=== PATIENT | male | born 1955 | race Caucasian/White ===

== ENCOUNTER 2017-05-17 07:20 | Emergency (ER) | payer SELFPAY ==
[2017-05-17] MEDS ORDERED: Sodium Chloride 0.9% 1,000 ML PRIMARY IV ONE (07:43)
[2017-05-17] MEDS ORDERED: DIPH,PERTUSS,TET(ADACEL) VAC/PF 0.5 ML (Tdap) IM ONE (07:43)
[2017-05-17] MEDS ORDERED: ceFAZolin Inj 1gm (Premix) 1 GM in Dextrose 1 BAG IV ONE (07:44)
[2017-05-17 07:58] VITALS: RESP 18; TEMP 98
[2017-05-17 08:06] LABS: BASOPHILS # (AUTO) 0.23 10*3/UL; EOSINOPHILS # (AUTO) 0.19 10*3/UL; EOSINOPHILS % (AUTO) 1.6 % (0-8); HEMATOCRIT 43.7 % (42.0-52.0); HEMOGLOBIN 15.3 g/dL (14.0-18.0); MEAN CORPUSCULAR VOLUME 94.4 FL (80-90); MEAN PLATELET VOLUME 9.3 FL (7.4-12.2); MONOCYTES # (AUTO) 0.79 10*3/UL (0.3-0.8); MONOCYTES % (AUTO) 6.8 % (5-15); NEUTROPHILS # (AUTO) 7.95 10*3/UL; NEUTROPHILS % (AUTO) 68.8 % (50-80); RED BLOOD COUNT 4.63 10^6/uL (4.70-6.10)
[2017-05-17 08:12] LABS: PLATELET MORPHOLOGY COMMENT NORMAL MORPHOLOGY (NORM); RBC MORPHOLOGY COMMENT NORMAL MORPHOLOGY (NORM); WBC MORPHOLOGY COMMENT NORMAL MORPHOLOGY (NORM)
[2017-05-17 08:17] LABS: BLOOD UREA NITROGEN 14 mg/dL (7-22); BUN/CREATININE RATIO 23.33 (6-20); CALCIUM 9.1 mg/dL (8.7-10.7); EST GLOMERULAR FILTRATION > 60 (>60 ml/min/1.73m(2)); SERUM ALBUMIN 4.6 g/dL (3.5-4.8)
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
== END 2017-05-17 09:45 | disposition home or self-care (01) ==
LOC: ER 07:20
DX: S01.311A Laceration without foreign body of right ear, initial encounter (principal); S06.0X1A Concussion with loss of consciousness of 30 minutes or less, initial encounter; S01.21XA Laceration without foreign body of nose, initial encounter; M54.2 Cervicalgia; S01.81XA Laceration without foreign body of other part of head, initial encounter; V86.59XA Driver of other special all-terrain or other off-road motor vehicle injured in nontraffic accident, initial encounter; Y92.821 Forest as the place of occurrence of the external cause
CPT/HCPCS: 70450; 70486; 72125; 80053; 80320; 85025; 90471; 96365; 99285; J0690; J7030

== ENCOUNTER 2019-08-09 14:00 | Inpatient (IN) ==
[2019-08-09] MEDS ORDERED: PANTOPRAZOLE IV 40 MG VIAL IVP ONE (14:18)
[2019-08-09] MEDS ORDERED: Sodium Chloride 0.9% 1,000 ML PRIMARY IV ONE (14:18)
[2019-08-09 14:37] LABS: Hematocrit [HCT] 38.2 % (42.0-52.0); Hemoglobin [HGB] 12.9 g/dL (14.0-18.0); MEAN CORPUSCULAR HGB CONC 33.8 g/dL (33-37); MEAN CORPUSCULAR VOLUME 92.7 FL (80-90); MEAN PLATELET VOLUME 9.5 FL (7.4-12.2); RED BLOOD COUNT 4.12 10^6/uL (4.70-6.10)
[2019-08-09 14:46] LABS: BLOOD UREA NITROGEN 16 mg/dL (7-22); BUN/CREATININE RATIO 17.77 (6-20)
[2019-08-09 14:52] LABS: BAND NEUTROPHILS % 1 % (0-10); BASOPHILS % (MANUAL) 2 % (0-1); EOSINOPHILS % (MANUAL) 2 % (0-8); MONOCYTES % (MANUAL) 4 % (0-12); NEUTROPHILS % (MANUAL) 51 % (50-80); PLATELET MORPHOLOGY COMMENT NORMAL MORPHOLOGY (NORM); RBC MORPHOLOGY COMMENT NORMAL MORPHOLOGY (NORM); WBC MORPHOLOGY COMMENT SEE COMMENTS (NORM)
[2019-08-09 15:24] LABS: BILIRUBIN,URINE NEGATIVE (NEG); CLARITY,URINE CLEAR (CLEAR); COLOR,URINE YELLOW (Y); GLUCOSE, URINE (UA) NEGATIVE (NEG); OCCULT BLOOD,URINE NEGATIVE (NEG); PROTEIN,URINE NEGATIVE (NEG)
[2019-08-09 15:27] LABS: URINE SAMPLE TYPE CLEAN CATCH URINE
--- NOTE | 2019-08-09 15:57 | DI ---
CT Abdomen/Pelvis W Contrast,08/09/2019 2:50 PM: Clinical History: Abdominal pain Previous Exam: July 30, 2019 Findings: Multiple helically acquired CT images are obtained through the abdomen and pelvis following intraveno us administration of 75 cc of Omnipaque 300, and demonstrates clear lung bases. The liver is stable when compared with the prior exam. The gallbladder is decompressed. The urinary bladder is unremarkable. The anterior abdominal wall and subcutaneous fat is normal. The ascites seen on the prior exam has resolved. There are some fluid filled loops of small bowel without a transition point. There is debris within t he stomach. The appendix is enlarged and inflamed measuring 13 mm in diameter. There is periappendiceal fat stran ding is well. The liver, gallbladder, spleen, pancreas, adrenals and kidneys are unremarkable. The free fluid seen on the prior exam has resolved. Impression: Acute appendicitis.
[2019-08-09] MEDS ORDERED: Ertapenem Inj 1 GM in Sodium Chloride 0.9% 100 ML IV ONE (16:19)
--- NOTE | 2019-08-09 18:36 | CONSULT ---
Consult Note - Consult Consult Date: 08/09/19 Reason for Consult: PreOp Consulation : General Surgery Requesting Physician: Dr. Llamas Primary Care Provider: NONE NONE - History of Present Illness History of Present Illness: The patient is a 64-year-old male I'm asked to see for an abnormal appendix. Patient was in the emergency room on 07/30/2019. He had abdominal pain with nausea and vomiting. It had a recent urology visit for swelling of his right testicle. Biofire stool studies were ordered as well as a CT scan. The patient was hydrated and felt better. He left before the results of the CT scan and stool studies were available. His stool studies were negative. CT scan was read as a partial some bowel obstructive process. The report says the appendix was not seen but there is no inflammatory process in the right lower quadrant. The patient did not keep his follow-up appointment with Dr. Small. He he presents to the emergency room again today with abdominal pain, abdominal cramping, nausea, diarrhea, and vomiting. He is worse after he eats. He is having some bowel movements but feels backed up. A repeat CT scan was done. He has an enlarged appendix with periappendiceal inflammatory change. The appendix measures 13 mm. No obvious abscess. It is felt he had an abnormal appendix on his prior CT. His white count is normal at 7000 and was 14,000 on the . He does not appear to be in any acute distress. I'm asked to see him for evaluation. Review of Systems - Gastrointestinal Gastrointestinal / Abdominal: REPORTS: Nausea, Vomiting, Diarrhea, Abdominal Pain, Poor Appetite, Bloating, See HPI Past Medical History Medical History: Chronic smoker, denies significant medical problems. Surgical History: Tonsillectomy. Ear surgery. Tobacco Use: Current Every Day Smoker (Pack-a-day) In the Past 12 Months, Have Used or Abuse Any of the Following Substance: None Alcohol Use: Sober (Quit 5 years ago) Medication / Allergies Home Medications: Home Medications Medication Instructions Recorded Confirmed NK 08/09/19 08/09/19 Allergies/Adverse Reactions: Allergies Allergy/AdvReac Type Severity Reaction Status Date / Time venom-honey bee Allergy Anaphylaxis Verified 08/09/19 14:01 Results - Labs CBC and BMP: 08/09/19 14:20 08/09/19 14:20 - Imaging Status: Image Reviewed by Me, Report Reviewed by Me (And discussed with the radiologist.) Exam - Vitals Vital Signs: Vital Signs Temperature 97.1 F Temperature Source Temporal Artery Scan Pulse Rate [Pulse Oximeter] 60 Respiratory Rate 18 Blood Pressure [Left Arm] 128/79 Pulse Ox 94 Oxygen Flow Rate 0 Oxygen Delivery Method Room Air Height 5 ft 10 in Weight 127 lb - General General Appearance: No Acute Distress, Cooperative, Disheveled, Thin - Respiratory Respiratory Exam: POSITIVE: Clear to Auscultation - Bilaterally, Breathing Non Labored - Cardiovascular Cardiovascular Exam: POSITIVE: RRR, No Murmur - GI/Abdominal GI/Abdominal Exam: POSITIVE: Normal Bowel Sounds, Soft, Guarding Additional GI/Abdominal Exam Details: Right lower quadrant tenderness with guarding. No peritoneal signs. Fullness in the right lower quadrant. - Rectal Rectal Exam: POSITIVE: Deferred - Neurological Neurological Exam: POSITIVE: Alert, Oriented x 3 - Psychiatric Psychiatric Exam: POSITIVE: Normal Affect, Normal Mood Assessment and Plan - Patient Problems (1) Acute appendicitis Current Visit: Yes Status: Acute Priority: High Comment: Very unusual case. The appendix was enlarged and fluid-filled 11 days ago. It does not appear to have ruptured or there to be an abscess. Most likely acute appendicitis but have to consider other etiologies such as tumor, mucocele, possibly inflammatory bowel disease. At any rate we need to proceed with appendectomy. The procedure has been discussed with the patient in complete yet simple terms including benefits, risks, and alternatives. All questions h ave been answered. Informed consent has been obtained. He agrees to proceed. Code(s): K35.80 - Unspecified acute appendicitis Qualifiers: Acute appendicitis type: with localized peritonitis
[2019-08-09] MEDS ORDERED: Nasal Sanitizer POPSWAB ampule 3 AMP (Nozin) PREOP DOSE ENOS SCH (18:38)
[2019-08-09] MEDS ORDERED: Lactated Ringers 1,000 ML PRIMARY IV SCH (18:38)
[2019-08-09] MEDS ORDERED: Lactated Ringers 1,000 ML PRIMARY IV ONE ×2 (18:40→18:46)
[2019-08-09] MEDS ORDERED: LIDOCAINE MPF 2% - 5 ML (20 MG/1 ML) ONE (18:45)
[2019-08-09] MEDS ORDERED: PROPOFOL 10 MG/1 ML (200 MG/20 ML) VIAL IV ONE (18:45)
[2019-08-09] MEDS ORDERED: fentaNYL Inj 250 MCG/5 ML VIAL ONE (18:46)
[2019-08-09] MEDS ORDERED: MIDAZOLAM 5 MG/1 ML ONE (18:46)
[2019-08-09] MEDS ORDERED: ROCURONIUM 10 MG/1 ML - 5 ML VIAL IVP ONE (18:46)
[2019-08-09] MEDS ORDERED: LIDOCAINE W/ SODIUM BICARB 0.5 ML SYR SUBD PRN (18:57)
[2019-08-09] MEDS ORDERED: ONDANSETRON 4 MG/2 ML VIAL IVP PRN (18:57)
[2019-08-09] MEDS ORDERED: BUPIVACAINE 0.25% W/ EPI - 10 ML VIAL ONE (18:59)
[2019-08-09] MEDS ORDERED: KETOROLAC 30 MG/1 ML VIAL ONE (19:39)
[2019-08-09] MEDS ORDERED: SUGAMMADEX SODIUM 200 MG/2 ML VIAL IV ONE (19:39)
[2019-08-09] MEDS ORDERED: KETAMINE 100 MG/1 ML - 5 ML ONE (19:54)
[2019-08-09] MEDS ORDERED: Acetaminophen 1000mg Inj 1,000 MG/100 ML VIAL IV ONE (20:13)
[2019-08-09] MEDS ORDERED: Sodium Chloride 0.9% vial 0 ML ONE (20:35)
[2019-08-09] MEDS ORDERED: BUPivacaine Liposome/PF (Exparel) Inj 20ml vial INFIL ONE (20:36)
[2019-08-09] MEDS ORDERED: BUPivacaine Inj 0.25% PF - 10ml vial ONE (20:41)
--- NOTE | 2019-08-09 21:09 | CRNA.PROGR ---
Anesthesia Recovery Phase I - Post Anesthesia Evaluation Patient's Condition on Arrival in Phase I: Stable Pain Level: 0
--- NOTE | 2019-08-09 21:10 | CRNA.PROGR ---
Anesthesia Time - Procedure/Recovery Time Start Date: 08/09/19 End Date: 08/09/19 Anesthesia : Time In: 19:07 Anesthesia : Time Out: 21:09 Anesthesia : Total Time: 122 - Total Anesthesia Time Total Anesthesia Time (minutes): 122 - Other Weight: 57.606 kg Height: 5 ft 10 in Body Mass Index (BMI): 18.2 Physical Status: P2 Anesthesia Type: General Anesthesia : ET
--- NOTE | 2019-08-09 21:19 | GEN.OPNOTE ---
Operative Note Surgery Date: 08/09/19 Preoperative Diagnosis: Abnormal appendix. Possible acute appendicitis. Postoperative Diagnosis: Abnormal appendix. Dense adhesions. Mesenteric adenopathy. Etiology unclear. Procedure: Right hemicolectomy with ileotransverse colostomy Surgeon: Abhi Driscoll MD Anesthesia Provider: Joshua Carbajal CRNA Anesthesia Type: General Estimated Blood Loss (mL): 50 Fluids: 1600 mL of crystalloid. 1 g of IV Invanz at 5 PM. 30 mg of IV Toradol at 8:30 PM. 1 g of IV Tylenol at 8:15 PM. Pathology: Specimen to pathology. Indications: Right lower quadrant abdominal pain. Partial bowel obstructive symptoms. Abnormal CT of the appendix. Findings: Dilated and edematous terminal ileum. Appendix densely adhered to the terminal ileum and cecum. Adenopathy. The mass was stuck to the lateral sidewall. Complications: None. Operative Summary: The patient was taken to the operating suite and placed on the operating table in a supine position. Following induction of general anesthetic the abdomen was prepped and draped in a sterile fashion. A surgical timeout was performed. I made a usual appendectomy incision. The patient is very thin. The abdominal wall was transected in a muscle-splitting fashion. An Chaz retractor was placed. It soon became obvious that he would need a bigger incision. It was extended laterally and medially into the rectus muscle. A larger Chaz retractor was placed. The adhesion from the mass to the lateral sidewall was taken down by incising the peritoneum. With careful dissection I was able to elevate the appendix the terminal ileum and the right colon through the incision. The right colonic attachments were taken down with electrocautery. The terminal ileum was transected with a linear stapler. The mesocolon was taken down by clamping dividing and ligating it. I removed all gross adenopathy. The dissection was carried up to the right colon wall. The right colon was transected with a linear stapler. The specimen was removed from the operative field. Hemostasis was assured. Appropriate irrigation and suctioning were performed. The mesocolon was closed with 2-0 Vicryl. The bowel was placed in a [id number] fashion. The anastomosis was performed with an intraluminal stapler and the defect from the stapler was closed transversely with a TA 60 stapler. This created a [id number] yet functional end-to-end in ileocolostomy. I oversewed the TA 60 staple line. A stitch was placed in the crotch of the anastomosis. The anastomosis was widely patent. The anastomosis was returned to the right lower quadrant and covered with omentum. Final irrigation was performed. Final check for hemostasis was done. The abdominal wall was closed in layers with 0 Vicryl. The wound was irrigated as we closed in layers. The subcutaneous tissue was infiltrated circumferentially with exparel. Ivana's fascia was reapproximated with 2-0 Vicryl. The skin was closed with surgical alfredo followed by sterile dressing. The patient tolerated all aspects of the procedure well without complication. He was taken to recovery room in stable condition. All counts were correct. Patient Problems - Patient Problem List (1) Acute appendicitis Current Visit: Yes Status: Acute Priority: High Code(s): K35.80 - Unspecified acute appendicitis Qualifiers: Acute appendicitis type: with localized peritonitis Category: Medical Procedure Codes - Surgical Procedures Primary Surgical Procedure: 81578 : Colectomy, Partial w/Ileostomy
[2019-08-09] MEDS ORDERED: HYDROmorphone 2 MG/1 ML ONE (21:29)
[2019-08-09] MEDS: HYDROmorphone 2 MG/1 ML IVP PRN ×3 (21:33→21:48)
[2019-08-09] MEDS: D5-LR + 20mEq KCL 1,000 ML PRIMARY IV SCH (22:44)
[2019-08-09] MEDS: NICOTINE 21 MG /DAY PATCH TRANSDERM SCH (22:56)
[2019-08-09] MEDS ORDERED: Pneumococcal Vacc 13 Syringe 0.5 ML DISP.SYRIN IM ONE (23:51)
[2019-08-10] MEDS: HYDROmorphone 2 MG/1 ML IVP PRN ×2 (01:26→21:48)
[2019-08-10] MEDS: KETOROLAC 15 MG/1 ML VIAL IVP SCH ×4 (03:27→21:07)
--- NOTE | 2019-08-10 05:38 | PDOC ---
Abdomen/Flank HPI - General Chief Complaint: Abdomen Pain Stated Complaint: ABD PAIN Date Seen by Provider: 08/09/19 Time Seen by Provider: 14:05 Source: POSITIVE: Patient, Old records Exam Limitations: POSITIVE: No limitations Nurse's Notes Reviewed & Considered: Yes - History of Present Illness Initial Comments: The patient is a 64-year-old male. He presents to the emergency room complaining of abdominal pain. Patient was seen in the emergency room approximately 10 days ago with abdominal pain and diarrhea. CT scan of the abdomen that time showed possible small bowel obstruction. Patient left the emergency room on that date prior to CAT scan results being returned. He states he hadn't return immediately to take care of his dogs. CT scan was returned and the patient was contacted and instructed to come back to the emergency room. Patient states that he had to arrange for accommodations for his dogs and he did so and stated that he would return to the emergency room, but he failed to do so. Patient states that he felt better during the several days following this event. He's had no further vomiting; he states he has had some loose bowel movements. He states that today, however, the pain became worse and somewhat more localized in the right lower quadrant. Patient was read as having a normal appendix on his initial CT. No fevers or chills. Patient has been eating and drinking. 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 Body Location Affected: REPORTS: Abdomen Timing: REPORTS: Gradual, Intermittent, Getting Worse Duration: >1 week (Approximately 10 days) Severity: Moderate Quality: REPORTS: "Pain", Tenderness Abdominal Pain Onset Location: REPORTS: Generalized abdomen (, "Cramping, becoming more localized in the right lower quadrant.) Abdominal Pain Radiation: REPORTS: RLQ, Periumbilical Context: REPORTS: None Modifying Factors: improves with: Nothing Associated Symptoms: REPORTS: Nausea, Vomiting (10 days ago), Diarrhea Similar Symptoms Previously: Yes (as above) Recent Care Received: REPORTS: Recently Seen, Treated by MD (As above) Any Prior Injuries Related to Current Complaint?: No - Patient Home Medications Home Medications: Home Medications NK 08/09/19 - Patient Allergies Allergies/Adverse Reactions: Allergies Allergy/AdvReac Type Severity Reaction Status Date / Time venom-honey bee Allergy Anaphylaxis Verified 08/09/19 14:01 Past Medical History - heen HEENT History: Denies History Cardiovascular History: Denies History Respiratory History: Denies History Gastrointestinal History: Other (please comment) Additional Gastrointestinal History: Chronic abd pain Genitourinary History: Denies History Endocrine History: Denies History Musculoskeletal History: Denies History Prosthesis or Implant: No Neurological History: Denies History Blood Disorders: Denies History Psychiatric History: Denies History History of Sexually Transmitted Diseases: No Male Reproductive History: Denies History Cancer History: Denies History In Past Year Been Physically Harmed or Verbally Threatened: No History of MDRO: No History of Other Communicable Diseases: No Tobacco Use: Current Every Day Smoker Alcohol Use: None In the Past 12 Months, Have Used or Abuse Any Substance: None Previous Surgical History: No Significant Family History: No pertinent family hx Past Medical History Reviewed: Reviewed - No Changes ROS - Limitations ROS Limitations: No Limitations Constitution: REPORTS: Denies Symptoms Cardiovascular: REPORTS: Denies Cardiac Symptoms Respiratory: REPORTS: Denies Resp Symptoms Neurological: REPORTS: Denies Neuro Symptoms Gastrointestinal: REPORTS: Abdominal Pain, Nausea, Diarrhea Endocrine: REPORTS: Denies Symptoms Musculoskeletal: REPORTS: Denies MS Symptoms Genitourinary: REPORTS: Denies Symptoms Eyes: REPORTS: Denies Symptoms ENT: REPORTS: Denies Symptoms Skin: REPORTS: Denies Skin Symptoms Lympathic: REPORTS: Denies Lympathic Symptoms Immunologic: POSITIVE: Denies Symptoms Psychiatric: POSITIVE: Denies Psych Symptoms Abdominal/Flank Pain PE - General Appearance General Appearance: POSITIVE: Alert, Cooperative, No Acute Distress, No Evidence of Trauma - HEENT HEENT: POSITIVE: Head Inspection Nml, Eyes Inspection Nml, Ears Inspection Nml, Nose Inspection Nml, Oral/Dental Inspect. Nml, Pharynx Inspect. Nml, PERRL, EOMI - Neck Neck: POSITIVE: Normal Inspection, No Apparent Injury - Respiratory Respiratory: POSITIVE: No Respiratory Distress, Breath Sounds Normal, Chest Non- Tender - Cardiovascular Cardiovascular: POSITIVE: Regular Rate and Rhythm, Heart Sounds Normal, Equal Pulses, Strong Pulses Peripheral Pulses: Radial (R): 2+, Radial (L): 2+ - Chest Chest: POSITIVE: Non Tender - Abdomen Abdomen: Soft: (All Quadrants), Normal Bowel Sounds: (All Quadrants), No Splenomegaly: (All Quadrants), No Hepatomegaly: (All Quadrants), No Guarding: (All Quadrants), No Rebound: (All Quadrants), No Palpable Pulse: (All Quadrants), No Palpabale Mass: (All Quadrants), No Distention: (All Quadrants), No Rigidity: (All Quadrants), Tenderness Noted: (RUQ), (LUQ), (RLQ), (LLQ) Additional Abdominal Details: Abdominal examination shows bowel sounds to be active. Patient expresses some poorly localized discomfort over the paraumbilical area; somewhat worse over the right lower quadrant. No masses, organomegaly or rebound. - Back Back: POSITIVE: Normal Inspection - Skin Skin: POSITIVE: Intact, Normal For Race, Warm, Dry, No Rash - Extremities Extremity: Non-Tender: (All Extremities), Normal ROM: (All Extremities), Normal Inspection: (All Extremities) - Neurological Neurological: POSITIVE: Affect Apporpriate, Oriented X3, hanger off Normal As Tested, Motor Normal, Sensation Normal - Psychological Psychiatric: POSITIVE: Affect Appropriate, Mood Appropriate Images - Complete Complete: 1 - Family describes pain. Abdomen Progress - Results Reviewed by me Xrays/CTs/US Reviewed by me: Yes Discussed with Radiologist: Yes Radiology Findings: CT abdomen and pelvis with IV contrast reported by radiologist as acute appendicitis. Lab Results Reviewed by Me: Yes CBC and BMP: 08/09/19 14:20 08/09/19 14:20 Lab Results:: Laboratory Results 08/09/19 08/09/19 08/09/19 14:20 14:20 15:10 WBC 7.88 RBC 4.12 L Hgb 12.9 L Hct 38.2 L MCV 92.7 H MCH 31.3 H MCHC 33.8 RDW Std Deviation 48.2 RDW Coeff of Ariana 14.6 H Plt Count 284 MPV 9.5 Neutrophils % (Manual) 51 Band Neutrophils % 1 Lymphocytes % (Manual) 40 Monocytes % (Manual) 4 Eosinophils % (Manual) 2 Basophils % (Manual) 2 H Metamyelocytes % Not Reportable Myelocytes % Not Reportable Promyelocytes % Not Reportable Blast Cells Not Reportable WBC Morphology Comment See comments Plt Morphology Comment Normal morphology RBC Morph Comment Normal morphology Sodium 144 Potassium 4.1 Chloride 108 Carbon Dioxide 27 Anion Gap 9 BUN 16 Creatinine 0.9 Estimated GFR > 60 BUN/Creatinine Ratio 17.77 Glucose 120 H Calculated Osmolality 299.0 H Calcium 9.4 Total Bilirubin 0.4 AST 30 ALT 28 Alkaline Phosphatase 49 Total Protein 7.2 Albumin 4.0 Globulin 3.2 Albumin/Globulin Ratio 1.20 L Amylase 74 Lipase 169 Ur Collection Type Clean catch urine Urine Color Yellow Urine Clarity Clear Urine pH 7.0 Ur Specific [place]obel 1.015 Urine Protein Negative Urine Glucose (UA) Negative Urine Ketones Negative Urine Occult Blood Negative Urine Nitrate Negative Urine Bilirubin Negative Urine Urobilinogen 1.0 Ur Leukocyte Esterase Negative Ur Culture Indicated? Culture not set - Patient's Progress Pain Medication Addressed: POSITIVE: Patient Refused Re-examine Time: 16:00 Re-Examine Comment: Patient advised that he may have acute appendicitis in accordance with his CT scan. It is somewhat unusual that one of the patient's complaints is diarrhea and that after having been symptomatic for 10 days he has a normal white blood cell count. Case was discussed with surgeon nutritionist public health Dr. Driscoll, who will come to the emergency room to further evaluate and treat, and has ordered the patient to be given a gram of Invanz. Status: POSITIVE: Unchanged, Re-Examined - Consult Consult (If Yes, Name of Consulting MD & Time Called): Yes (Dr. Driscoll, surgeon, 1600) Consulting MD will see pt:: POSITIVE: In ED Counseled: POSITIVE: Patient, RE: Lab Results, RE: Radiology Results, RE: DX, RE: Need for F/U Patient Care Time - Estimated PCT Patient Care Time (In Minutes): 45 Vital Signs - VS Reviewed Vital Signs Reviewed: Yes Discharge Clinical Impression: Abdominal pain, Appendicitis Discharge Disposition: Admit to Inpatient Condition: Fair Patient Problem(s) Reviewed: Yes Date Decision to Admit to Inpatient: 08/09/19 Time Decision to Admit to Inpatient: 16:00
[2019-08-10 07:27] LABS: Hemoglobin [HGB] 11.9 g/dL (14.0-18.0); MEAN CORPUSCULAR HGB CONC 33.1 g/dL (33-37); MEAN CORPUSCULAR VOLUME 94.5 FL (80-90); MEAN PLATELET VOLUME 9.3 FL (7.4-12.2); RED BLOOD COUNT 3.81 10^6/uL (4.70-6.10)
[2019-08-10 07:36] LABS: BLOOD UREA NITROGEN 12 mg/dL (7-22)
[2019-08-10] MEDS: Acetaminophen 1000mg Inj 1,000 MG/100 ML VIAL IV PRN ×2 (07:56→17:17)
[2019-08-10] MEDS: D5-LR + 20mEq KCL 1,000 ML PRIMARY IV SCH ×2 (07:57→16:12)
[2019-08-10] MEDS: ONDANSETRON 4 MG/2 ML VIAL IVP PRN ×3 (07:57→21:51)
[2019-08-10 07:59] LABS: BAND NEUTROPHILS % 0 % (0-10); NEUTROPHILS % (MANUAL) 77 % (50-80); PLATELET MORPHOLOGY COMMENT NORMAL MORPHOLOGY (NORM); RBC MORPHOLOGY COMMENT NORMAL MORPHOLOGY (NORM); WBC MORPHOLOGY COMMENT NORMAL MORPHOLOGY (NORM)
[2019-08-10 08:00] LABS: BASOPHILS % (MANUAL) 0 % (0-1); EOSINOPHILS % (MANUAL) 0 % (0-8); MONOCYTES % (MANUAL) 7 % (0-12)
[2019-08-10] MEDS: PANTOPRAZOLE IV 40 MG VIAL IVP SCH (09:33)
[2019-08-10] MEDS: NICOTINE 21 MG /DAY PATCH TRANSDERM SCH (09:33)
--- NOTE | 2019-08-10 11:43 | CRNA.PROGR ---
Anesthesia Note - Progress Notes Anesthesia Progress Note: Lying in bed, wants a cup of coffee in the worst way. Had a salvador-colectomy last night. States his pain is controlled. Says no nausea. No urinary catheter present. Voided once since OR for 250 ml. Denies a sore throat. Denies shortness of breath. No apparent anesthetic difficulties.
--- NOTE | 2019-08-10 12:04 | PDOC(PROG) ---
Subjective Post Op Day: 1 Pain Management: IV Dilaudid, Tylenol, and Toradol Banuelos Catheter: No Flatus: No Diet: ice chips Ambulating: Yes Date of Service: 08/10/19 Time of Service: 11:45 Interval History: Overall doing well. Pain control seems adequate. He reports it hurts when he moves or gets up or coughs. When he is resting he seems fine. He would like a cup of coffee. Had some brief nausea this morning. No flatus. No bowel moveme nt. We discussed the surgical findings. Objective : Data - Labs CBC and BMP: 08/10/19 06:50 08/10/19 06:50 - Vital Signs Vital Signs and I&O: Vital Signs - Last Taken Temperature 98.9 F 08/10/19 07:00 Pulse Rate 69 08/10/19 07:00 Respiratory Rate 24 08/10/19 07:00 Blood Pressure 114/64 08/10/19 07:00 Pulse Ox 91 08/10/19 07:00 Intake and Output (24hr x 4 totals) 08/08/19 08/09/19 08/10/19 08/11/19 05:59 05:59 05:59 05:59 Intake Total 3848 / 3848 60 / 60 Output Total 50 / 50 250 / 250 Balance 3798 / 3798 -190 / -190 Objective : Exam - General General Appearance: No Acute Distress, Cooperative - Respiratory Respiratory Exam: Clear to Auscultation - Bilaterally, Breathing Non Labored - Cardiovascular Cardiovascular Exam: RRR, No Murmur - GI/Abdominal GI/Abdominal Exam: Non Distended, Soft, Hypoactive Bowel Sounds Additional GI/Abdominal Exam Details: The dressing is clean, dry, and intact. Incisional tenderness. Remaining abdomen is soft. - Neurological Neurological Exam: Alert, Oriented x 3 - Psychiatric Psychiatric Exam: Normal Affect, Normal Mood Assessment and Plan - Patient Problems (1) Mass of cecum Current Visit: Yes Status: Acute Priority: High Comment: Patient did not have acute appendicitis. His appendix was dilated but this was secondary to a cecal mass. 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 He underwent a limited right hemicolectomy with ileal transverse colostomy. He is doing well at this time. He has a partial obstruction secondary to this mass. Likely can start small amounts of clear liquids tomorrow. We discussed the surgical findings in detail. He understands I am leaving on vacation tomorrow and Dr. Small will follow him through the weekend. Code(s): K63.89 - Other specified diseases of intestine
[2019-08-10] MEDS ORDERED: Ertapenem Inj 1 GM in Sodium Chloride 0.9% 100 ML IV SCH (16:00)
[2019-08-11] MEDS: D5-LR + 20mEq KCL 1,000 ML PRIMARY IV SCH ×2 (01:13→09:16)
[2019-08-11] MEDS: KETOROLAC 15 MG/1 ML VIAL IVP SCH ×4 (03:28→22:02)
[2019-08-11 04:24] LABS: BASOPHILS # (AUTO) 0.01 10*3/UL; BASOPHILS % (AUTO) 0.1 % (0-1); EOSINOPHILS # (AUTO) 0.19 10*3/UL; EOSINOPHILS % (AUTO) 2.2 % (0-8); Hematocrit [HCT] 33.9 % (42.0-52.0); Hemoglobin [HGB] 10.6 g/dL (14.0-18.0); MEAN CORPUSCULAR HGB CONC 31.3 g/dL (33-37); MEAN CORPUSCULAR VOLUME 98.5 FL (80-90); MEAN PLATELET VOLUME 9.9 FL (7.4-12.2); MONOCYTES # (AUTO) 0.86 10*3/UL (0.3-0.8); MONOCYTES % (AUTO) 9.8 % (5-15); NEUTROPHILS # (AUTO) 5.54 10*3/UL; NEUTROPHILS % (AUTO) 62.8 % (50-80); RED BLOOD COUNT 3.44 10^6/uL (4.70-6.10)
[2019-08-11 04:29] LABS: PLATELET MORPHOLOGY COMMENT NORMAL MORPHOLOGY (NORM); RBC MORPHOLOGY COMMENT NORMAL MORPHOLOGY (NORM); WBC MORPHOLOGY COMMENT NORMAL MORPHOLOGY (NORM)
[2019-08-11 05:02] LABS: BLOOD UREA NITROGEN 13 mg/dL (7-22); BUN/CREATININE RATIO 16.25 (6-20)
[2019-08-11] MEDS: ONDANSETRON 4 MG/2 ML VIAL IVP PRN (08:08)
[2019-08-11] MEDS: Acetaminophen 1000mg Inj 1,000 MG/100 ML VIAL IV PRN (08:09)
[2019-08-11] MEDS: PANTOPRAZOLE IV 40 MG VIAL IVP SCH (08:09)
[2019-08-11] MEDS: NICOTINE 21 MG /DAY PATCH TRANSDERM SCH (08:10)
--- NOTE | 2019-08-11 13:37 | PDOC(PROG) ---
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 He has not been nauseated since yesterday. He is tolerating sips of liquids. He is passing flatus. He is only using narcotics at night Objective : Data - Labs CBC and BMP: 08/11/19 03:52 08/11/19 03:52 - Vital Signs Vital Signs and I&O: Vital Signs - Last Taken Temperature 98.9 F 08/11/19 12:16 Pulse Rate 56 L 08/11/19 12:16 Respiratory Rate 20 08/11/19 12:16 Blood Pressure 136/82 08/11/19 12:16 Pulse Ox 93 08/11/19 12:16 Intake and Output (24hr x 4 totals) 08/09/19 08/10/19 08/11/19 08/12/19 05:59 05:59 05:59 05:59 Intake Total 3848 / 3848 2803 / 2803 Output Total 50 / 50 1116 / 1116 100 / 100 Balance 3798 / 3798 1687 / 1687 -100 / -100 Objective : Exam - GI/Abdominal GI/Abdominal Exam: Normal Bowel Sounds, Non Tender, Non Distended, Soft Assessment and Plan - Patient Problems (1) Appendicitis Current Visit: Yes Status: Acute Code(s): K37 - Unspecified appendicitis (2) Mass of cecum Current Visit: Yes Status: Acute Priority: High Code(s): K63.89 - Other specified diseases of intestine - Assessment / Plan Additional Assessment/Plan Details: Patient overall is doing very well tolerating diet. Will advance to full liquid diet. We'll DC IV Tylenol and started on orals. Pathology is not back as of yet
[2019-08-11] MEDS ORDERED: HYDROcodone-APAP 5 MG -325 MG TABLET PO PRN (13:39)
[2019-08-11] MEDS: HYDROmorphone 2 MG/1 ML IVP PRN (22:02)
[2019-08-12] MEDS: KETOROLAC 15 MG/1 ML VIAL IVP SCH ×2 (03:53→09:48)
[2019-08-12 07:22] VITALS: BP 134/85; RESP 16; TEMP 98.6; O2SAT 93
--- NOTE | 2019-08-12 09:11 | DCSUMMARY ---
Discharge Summary Admit Date: 08/09/19 Discharge Date: 08/12/19 Admitting Diagnosis: partial bowel obstruction with a cecal mass Discharge Diagnosis: Adenocarcinoma of the appendix Primary Surgery and Date: 08/09/2019 a right partial colon resection Hospital Course: Patient is admitted to the hospital on the 2018 with what appeared to be a partial bowel obstruction and a mass in the cecum. Dr. Driscoll took him to surgery and an abdomen partial right colectomy with primary ileocolonic anastomosis. Patient did very well. First postoperative day little bit nauseated but this result. Second postop day was tolerating liquid diet. Diet was advanced as tolerated. He is passing flatus and second postoperative day. 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 His abdomen was soft nontender. Is able to be discharged home. Pathology did come back from this is adenocarcinoma arising to the base of the appendix. There is a second synchronous lesion in the tip of the appendix. There was multiple positive lymph nodes. The resection margins were negative. Exam - Vitals Vital Signs: Vital Signs Temperature 98.6 F Temperature Source Oral Pulse Rate [Pulse Oximeter] 59 Pulse Rate 57 Respiratory Rate 16 Blood Pressure [Right Arm] 134/85 Blood Pressure [Left Arm] 138/97 Blood Pressure 152/80 Pulse Ox 93 Oxygen Flow Rate 1 Oxygen Delivery Method Room Air Height 5 ft 10 in Weight 131 lb 4 oz - General General Appearance: No Acute Distress - Respiratory Respiratory Exam: POSITIVE: Clear to Auscultation - Bilaterally - Cardiovascular Cardiovascular Exam: POSITIVE: RRR - GI/Abdominal GI/Abdominal Exam: POSITIVE: Normal Bowel Sounds, Non Tender, Non Distended, Soft Additional GI/Abdominal Exam Details: Incision clean dry Patient Problems - Patient Problem List (1) Appendicitis Current Visit: Yes Status: Acute Code(s): K37 - Unspecified appendicitis Category: Medical (2) Mass of cecum Current Visit: Yes Status: Acute Priority: High Code(s): K63.89 - Other specified diseases of intestine Category: Medical (3) Carcinoma of appendix Current Visit: Yes Status: Acute Code(s): C18.1 - Malignant neoplasm of appendix Category: Medical
[2019-08-12] MEDS: PANTOPRAZOLE IV 40 MG VIAL IVP SCH (09:17)
[2019-08-12] MEDS: NICOTINE 21 MG /DAY PATCH TRANSDERM SCH (09:18)
== END 2019-08-12 10:03 | disposition home or self-care (01) | DRG 330 ==
LOC: OPS 14:00 → ER 14:00 → OR 18:33 → OPS 18:33 → MED/SURG 18:33 → OPS 18:34 → UNDODEPER 18:44 → OPS 18:44 → MED/SURG 18:44
PROVIDERS: ADMIT Surgery; ATTEND Surgery